=== PATIENT | female | born 1960 | race Caucasian/White ===

== ENCOUNTER 2018-10-27 10:30 | Emergency (ER) | payer BC ==
[2018-10-27 10:58] VITALS: BP 153/83
--- NOTE | 2018-10-27 11:06 | UC ---
UC General HPI - HPI Summary HPI Summary: PT IS C/O SOME BURNING WITH URINATION X 1 WEEK. MILD AND SPORADIC AT ONSET. "I TRIED TO FLUSH IT OUT BY DRINKING LOTS OF WATER". SYMPTOMS NOW CONSTANT. NO FEVER, FLANK PAIN OR ABDOMINAL PAIN. + BLADDER PRESSURE. HX UTI'S WITH SIMILAR S/S'S. - History of Current Complaint Chief Complaint: UCGU Stated Complaint: URINARY COMPLAINT Time Seen by Provider: 10/27/18 10:47 Hx Obtained From: Patient Onset/Duration: Gradual Onset Timing: Constant Pain Intensity: 2 - Allergy/Home Medications Allergies/Adverse Reactions: Allergies Allergy/AdvReac Type Severity Reaction Status Date / Time No Known Allergies Allergy Verified 10/27/18 10:46 Home Medications: Home Medications Ibuprofen TAB* [Motrin TAB* 600 MG] 600 mg PO DAILY PRN 10/27/18 [History Confirmed 10/27/18] PMH/Surg Hx/FS Hx/Imm Hx Previously Healthy: Yes - Surgical History Surgical History: Yes Surgery Procedure, Year, and Place: APP--1981 - Family History Known Family History: Positive: Non-Contributory - Social History Alcohol Use: Occasionally Substance Use Type: None Smoking Status (MU): Former Smoker Review of Systems All Other Systems Reviewed And Are Negative: Yes Constitutional: Negative: Fever, Chills Gastrointestinal: Negative: Abdominal Pain, Vomiting, Diarrhea, Nausea Genitourinary: Positive: Dysuria. Negative: Hematuria, Vaginal/Penile Itching Physical Exam Triage Information Reviewed: Yes Appearance: Well-Appearing Vital Signs: Initial Vital Signs Temp 98.2 F 10/27/18 10:48 Pulse 74 10/27/18 10:48 Resp 20 10/27/18 10:48 BP 153/83 10/27/18 10:48 Pulse Ox 99 10/27/18 10:48 Vital Signs Reviewed: Yes Eyes: Positive: Conjunctiva Clear Neck: Positive: Supple Respiratory: Positive: No respiratory distress Cardiovascular: Positive: RRR Abdomen Description: Positive: Nontender, No Organomegaly, Soft. Negative: CVA Tenderness (R), CVA Tenderness (L) Bowel Sounds: Positive: Present Musculoskeletal: Positive: ROM Intact Neurological: Positive: Alert Psychological: Positive: Age Appropriate Behavior Skin Exam: Normal Diagnostics - Laboratory Lab Results: U/A=POSITIVE FOR PROTEIN, BLOOD AND LEUKOCYTES WITH CULTURE PENDING. Course/Dx - Differential Dx - Multi-Symptom Differential Diagnoses: Other - NON TOXIC. NO ACUTE ABOMEN. - Diagnoses Provider Diagnosis: UTI (urinary tract infection) Discharge - Sign-Out/Discharge Documenting (check all that apply): Patient Departure All imaging exams completed and their final reports reviewed: No Studies - Discharge Plan Condition: Stable Disposition: HOME Prescriptions: Cephalexin CAP* [Keflex CAP*] 500 mg PO BID 7 Days #14 cap Patient Education Materials: Urinary Tract Infection in Women (DC) Referrals: Leona Santa NP [Primary Care Provider] - 7 Days - Billing Disposition and Condition Condition: STABLE Disposition: Home
== END 2018-10-27 11:15 | disposition home or self-care (01) ==
LOC: UCCORT 10:30
DX: N39.0 Urinary tract infection, site not specified (principal); B96.20 Unspecified Escherichia coli [E. coli] as the cause of diseases classified elsewhere; Z87.891 Personal history of nicotine dependence
CPT/HCPCS: 81003; 87077; 87086; 87186; 99212; G0463